=== PATIENT | male | born 1960 | race Caucasian/White ===

== ENCOUNTER 2018-04-27 15:09 | Emergency (ER) | payer BC ==
[~2018-04-27] VITALS: Ht 177.8 cm; Wt 102.1 kg
[2018-04-27] MEDS ORDERED: KEFLEX500 MG PO (16:06)
[2018-04-27 17:17] VITALS: BP 132/87
== END 2018-04-27 17:19 | disposition home or self-care (01) ==
LOC: EME 15:09
PROC: 0HQKXZZ Repair Right Lower Leg Skin, External Approach (ICD-10-PCS; principal; 2018-04-27)
PROC: 3E0234Z Introduction of Serum, Toxoid and Vaccine into Muscle, Percutaneous Approach (ICD-10-PCS; principal; 2018-04-27)
DX: S81.811A Laceration without foreign body, right lower leg, initial encounter (principal); Z23 Encounter for immunization; W45.8XXA Other foreign body or object entering through skin, initial encounter; Z79.01 Long term (current) use of anticoagulants; Z87.891 Personal history of nicotine dependence; Z96.649 Presence of unspecified artificial hip joint
CPT/HCPCS: 99281; 99284